=== PATIENT | female | born 1960 | race Caucasian/White ===

== ENCOUNTER 2017-01-07 15:00 | Emergency (ER) | payer MEDICAID ==
[~2017-01-07] VITALS: Ht 157.5 cm; Wt 67.0 kg
[2017-01-07 15:03] VITALS: Ht 157.5 cm; Wt 67.0 kg
[2017-01-07] MEDS ORDERED: KETOROLAC 60 MG INJ IM STA (16:12)
--- NOTE | 2017-01-07 17:04 | ERD ---
ER Documentation Chief Complaint Date/Time DATE: 01/07/17 TIME: 16:59 Chief Complaint RIGHT KNEE PAIN SINCE YESTERDAY HPI This patient is a 56-year-old female who presents with right knee pain that began yesterday. She denies any trauma but she states she [place] distance in [place] and during that time she felt like her knee was cracking and now she has moderate to severe pain in the knee. She is able to ambulate slowly with pain. She denies any fall. She denies any numbness or tingling. She has been taking ibuprofen at home but it does not help. ROS All systems reviewed and are negative except as per history of present illness. Medications Home Meds Active Scripts Hydrocodone/Acetaminophen ([place] 5-325 Tablet) 1 Each Tablet, 1 EACH PO Q6, #20 TAB Prov:YURIY EDEN PA-C 01/07/17 Ibuprofen* (Motrin*) 600 Mg Tab, 600 MG PO Q6, #30 TAB Prov:YURIY EDEN PA-C 01/07/17 Allergies Allergies: Coded Allergies: No Known Allergy (Unverified , 01/07/17) PMhx/Soc History of Surgery: Yes () Anesthesia Reaction: No Hx Neurological Disorder: No Hx Respiratory Disorders: No Hx Cardiac Disorders: No Hx Psychiatric Problems: No Hx Miscellaneous Medical Probl: No Hx Alcohol Use: No Hx Substance Use: No Hx Tobacco Use: No Smoking Status: Never smoker FmHx Family History: No diabetes Physical Exam Vitals Vital Signs Date Time Temp Pulse Resp B/P Pulse Ox O2 Delivery O2 Flow Rate FiO2 01/07/17 15:03 98.4 63 18 130/79 99 Physical Exam General: well developed, well nourished, alert, nontoxic, no distress Head: normocephalic, atraumatic Eyes: PERRL, normal conjunctiva Respiratory: Clear to auscaultation bilaterally, speaks in full sentences, no use of accesory muscles or labored breathing, no rales, ronchi, or wheezing Cardiovascular: RRR, No murmurs Extremities: Right knee: No erythema, no edema, sensation to light touch intact , popliteal pulse 2+, no bony abnormalities, full range of motion Results 24 hrs Current Medications Medications (Trade) Dose Ordered Sig/Jane Route PRN Reason Start Time Stop Time Status Last Admin Dose Admin Ketorolac Tromethamine (Toradol) 60 mg ONCE STAT IM 01/07/17 16:12 01/07/17 16:13 DC 01/07/17 16:37 Procedures/MDM 56-year-old female has knee pain after walking all day yesterday. She is neurovascular intact. She is ambulatory with pain. She was given Toradol here in the emergency room and x-ray of the knee was ordered. Results are still pending at the end of my shift and there are passed on to the next provider who will dictate a result of the x-ray. Departure Diagnosis: Primary Impression: Knee pain Condition: Stable YURIY EDEN PA-C Jan 07, 2017 17:03
[2017-01-07] MEDS ORDERED: HYDR-906 PO (17:10)
[2017-01-07] MEDS ORDERED: IBUP-1542 PO (17:10)
--- NOTE | 2017-01-07 17:35 | RADRPT ---
PROCEDURE: XR Knee. CLINICAL INDICATION: Right knee pain. TECHNIQUE: 4 views of the right knee were obtained. The images reviewed on a PACS workstation. COMPARISON: None. FINDINGS: Mild joint space narrowing and osteophytosis in the medial and patellofemoral compartments is seen. No evidence of effusion. No soft tissue swelling is present. IMPRESSION: Mild osteoarthritis in the medial and patellofemoral compartments. RPTAT: HPNM Physician Dawna Date Time Electronically viewed and signed by Physician Dawna on 01/07/2017 17:34 /
--- NOTE | 2017-01-07 17:38 | EN ---
Date/Time of Note Date/Time of Note DATE: 01/07/17 TIME: 17:37 ER Progress Note Patient is a 56-year-old female who was passed along to me pending x-ray report. Her x-rays of by radiologist shows mild osteoarthritis in the medial and patellofemoral compartments. Patient will be given Darryl wrap here in the ED. Patient was neurovascularly intact. All questions were answered. Low suspicion for dislocation, fracture, septic joint, compartment syndrome, osteomyelitis, avascular necrosis, DVT, Achilles tendon rupture, cellulitis. At this time, unable to rule out any tendon and ligament injuries. DISCHARGE At this time, patient is stable for discharge and outpatient management with no new complaints during the ER course. Patient was sent home with copy of x-ray report ibuprofen and Darryl wrap and [place].. Patient will be discharged home with instructions to recheck for new or worsening symptoms such as fever, nausea, weakness, LOC and to follow up with primary care in the next 1-2 days. Patient was advised to return to the ER for any new or worsening symptoms. Plan was discussed and patient and/or family understands and agrees. Home instructions were given. DELMAR LERNER PA-C Jan 07, 2017 17:38
== END 2017-01-07 17:58 | disposition home or self-care (01) ==
LOC: FTE 15:00
DX: M25.561 Pain in right knee (principal)
CPT/HCPCS: 73562; 96372; J1885; Z7502

== ENCOUNTER 2018-05-17 07:33 | Emergency (ER) | END 2018-05-17 11:37 | disposition home or self-care (01) ==

== ENCOUNTER 2018-06-14 22:09 | Emergency (ER) | END 2018-06-14 23:45 | disposition home or self-care (01) ==